=== PATIENT | female | born 1985 | race Caucasian/White ===

== ENCOUNTER 2017-07-01 05:20 | Emergency (ER) | payer OTHER | END 2017-07-01 05:47 | disposition home or self-care (01) | LOC: SCSER 05:20 | DX: J01.90 Acute sinusitis, unspecified (principal); H10.33 Unspecified acute conjunctivitis, bilateral | CPT/HCPCS: 99283 ==

== ENCOUNTER 2017-10-28 07:15 | Outpatient (CLI) | payer OTHER ==
--- NOTE | 2017-10-28 08:34 | ULT ---
ULTRASOUND ABDOMEN COMPLETE: HISTORY: Epigastric pain. COMPARISON: None. TECHNIQUE: Real-time claire scale, color Doppler, and spectral analysis of the abdomen was performed. FINDINGS: Visualized portion of the pancreas is normal. Hepatic echotexture is normal. The liver measures 10. 4 cm in length. The IVC is mildly distended as well as the intrahepatic veins. Portal vein, antegrade flow. The gallbladder is normal. The right kidney measures 10.9 x 4.2 x 3.9 cm without mass, hydronephrosis, or abnormal calcification s. The spleen measures 9.2 cm in length. The left kidney measures 9.8 x 4.8 x 4.5 cm with a 1.3 cm cyst. The common bile duct is less than 6 mm, normal. The gallbladder is normal. There is a small gallbla dder polyp, sub-5 mm. Sonographic Nolen's sign is negative. IMPRESSION: 1. No acute inflammatory process. 2. Gallbladder polyp without cholelithiasis. 3. Small left renal cysts. POS: [facility]
== END 2017-10-28 07:16 | disposition home or self-care (01) ==
LOC: SCSULT 07:15
PROVIDERS: ATTEND Family Medicine
DX: R10.13 Epigastric pain (principal); K82.4 Cholesterolosis of gallbladder; N28.1 Cyst of kidney, acquired
CPT/HCPCS: 76700